=== PATIENT | male | born 1950 | race Caucasian/White ===

== ENCOUNTER → 2021-06-12 10:51 | Outpatient (BNVA) | payer OTHER, SELFPAY | PROVIDERS: Family Provider Nurse Practitioner Family; PCP Nurse Practitioner Family; Referring Provider Nurse Practitioner Family; Visit Provider Specialist | DX: R51.9 Headache, unspecified (principal); R20.0 Anesthesia of skin; R20.2 Paresthesia of skin; G31.84 Mild cognitive impairment of uncertain or unknown etiology | CPT/HCPCS: 96372; 99205; J1885 ==

== ENCOUNTER 2021-06-12 13:45 | Outpatient (CLI) | payer OTHER, SELFPAY ==
[2021-06-12 15:06] LABS: Vitamin B12 200 pg/mL (232-1245)
[2021-06-13 15:09] LABS: Lyme AB Screen <0.90 index
[2021-06-13 15:55] LABS: Erythrocyte Sedimentation Rate 2 mm/hr (0-10)
[2021-06-16 17:14] LABS: E. Chaffeensis AB IGG <1:64; E. Chaffeensis AB IGM <1:20
[2021-06-17 16:57] LABS: RMSF IGG NOT DETECTED; RMSF IGM NOT DETECTED
== END 2021-06-12 13:46 | disposition home or self-care (01) ==
PROVIDERS: PCP Nurse Practitioner Family; Visit Provider Specialist
DX: R20.0 Anesthesia of skin (principal); R20.2 Paresthesia of skin; R51.9 Headache, unspecified
CPT/HCPCS: 82607; 82746; 85651; 86140; 86618; 86666; 86757

== ENCOUNTER → 2021-06-25 08:54 | Outpatient (BNVA) | payer OTHER, SELFPAY | PROVIDERS: PCP Nurse Practitioner Family; Visit Provider Specialist | DX: E53.8 Deficiency of other specified B group vitamins (principal); G43.909 Migraine, unspecified, not intractable, without status migrainosus | CPT/HCPCS: 96372 ==

== ENCOUNTER → 2021-07-15 09:35 | Outpatient (BNVA) | payer OTHER, SELFPAY | PROVIDERS: PCP Nurse Practitioner Family; Visit Provider Specialist | DX: R51.9 Headache, unspecified (principal); E53.8 Deficiency of other specified B group vitamins; R90.82 White matter disease, unspecified | CPT/HCPCS: 99214; 99215 ==

== ENCOUNTER → 2022-08-12 14:57 | Outpatient (BNVA) | payer OTHER, SELFPAY | PROVIDERS: PCP Nurse Practitioner Family; Visit Provider Specialist | DX: R51.9 Headache, unspecified (principal) | CPT/HCPCS: 99214 ==

== ENCOUNTER → 2023-02-16 13:37 | Outpatient (BNVA) | payer OTHER, SELFPAY | PROVIDERS: PCP Nurse Practitioner Family; Visit Provider Dermatology | DX: B07.8 Other viral warts (principal); D04.4 Carcinoma in situ of skin of scalp and neck | CPT/HCPCS: 17272; 99213 ==

== ENCOUNTER 2023-05-21 07:55 | Outpatient (CLI) | payer OTHER, SELFPAY ==
--- NOTE | 2023-05-21 08:02 | USCV_ITS ---
mILD Kenn Meng Age: 73 Gender: M : 1950 Exam Date: 05/21/2023 08:37 Ordering Phys: Maddie Diaz APN Technologist: Jeff Sauceda [place] [facility] [place]: bradycardia BP: 133 / 79 HR: 42 Rhythm: Sinus Technical Quality: Adequate MEASUREMENTS (Male / Female) Normal Values 2D ECHO LVOT Diameter 2.0 cm LV Ejection Fraction MOD 2C 70.2 % LV Ejection Fraction 2C AL 70.5 % LA Diameter 3.3 cm LA Width 3.1 cm LA Height 4.3 cm RA Width 3.3 cm RA Height 4.7 cm Aorta at Sinotubular Diameter 2.6 cm IVC Diameter 1.8 cm M-MODE Aortic Annulus Diameter 3.1 cm LA Ao Ratio MM 1.2 MV E Point Septal Separation 0.5 cm DOPPLER AV Peak Velocity 121.0 cm/s LVOT Peak Velocity 108.0 cm/s AV Area Cont Eq vti 2.9 cm squared AV Area Cont Eq pk 2.9 cm squared MV Peak Velocity 97.0 cm/s MV Area PHT 4.3 cm squared Mitral E to A Ratio 1.1 MV E' Velocity 49.0 cm/s Mitral E to MV E' Ratio 9.1 Mitral E to LV E' Lateral Ratio 8.5 Mitral E to LV E' Septal Ratio 9.9 TR Peak Velocity 227.7 cm/s TR Peak Gradient 20.7 mmHg TR Mean Velocity 228.6 cm/s TR Mean Gradient 23.3 mmHg TR Velocity Time Integral 76.8 cm Right Atrial Pressure 3.0 mmHg Pulmonary Artery Systolic Pressu 23.7 mmHg PV Peak Velocity 79.3 cm/s RV Acceleration Time 0.1 s RV Ejection Time 0.3 s RV AcT/ET 0.4 FINDINGS Left Ventricle left ventricle is normal in LV systolic function is normal with EF of 55 to 60%. No regional wall motion abnormalities are seen. Right Ventricle Normal in size and function Right Atrium Normal in size Left Atrium Normal in size Mitral Valve Structurally normal mitral valve. Mild mitral regurgitation Aortic Valve Structurally normal aortic valve. Mild aortic regurgitation. No aortic stenosis. Tricuspid Valve Mild tricuspid regurgitation. Insufficient TR jet to calculate RVSP Pulmonic Valve Not well visualized Pericardium Normal Aorta Normal in size IVC Appears to be normal CONCLUSIONS LV systolic function is normal with EF of 55-60% Mild mitral regurgitation Mild aortic regurgitation Mild tricuspid regurgitation No comparison studies are available. Saad Hawthorne MD (Electronically Signed) Final Date: 25 May 2023 10:13 S
== END 2023-05-21 07:56 | disposition home or self-care (01) ==
PROVIDERS: PCP Family Medicine; Visit Provider Nurse Practitioner Family
DX: R00.1 Bradycardia, unspecified (principal); I34.0 Nonrheumatic mitral (valve) insufficiency; I35.1 Nonrheumatic aortic (valve) insufficiency; I07.1 Rheumatic tricuspid insufficiency
CPT/HCPCS: 93306

== ENCOUNTER → 2023-08-05 13:33 | Outpatient (BNVA) | payer OTHER, SELFPAY | PROVIDERS: PCP Family Medicine; Visit Provider Dermatology | DX: L57.0 Actinic keratosis (principal); L81.4 Other melanin hyperpigmentation; L57.8 Other skin changes due to chronic exposure to nonionizing radiation; Z85.828 Personal history of other malignant neoplasm of skin | CPT/HCPCS: 17000; 99213 ==

== ENCOUNTER → 2023-08-11 15:00 | Outpatient (BNVA) | payer OTHER, SELFPAY | PROVIDERS: PCP Family Medicine; Visit Provider Specialist | DX: R51.9 Headache, unspecified (principal) | CPT/HCPCS: 99213 ==

== ENCOUNTER → 2023-09-21 07:45 | Outpatient (BNVA) | payer OTHER, SELFPAY | PROVIDERS: PCP Family Medicine; Visit Provider Specialist | DX: G43.711 Chronic migraine without aura, intractable, with status migrainosus (principal) | CPT/HCPCS: 99214 ==

== ENCOUNTER → 2023-10-21 09:38 | Outpatient (BNVA) | payer OTHER, SELFPAY | PROVIDERS: PCP Family Medicine; Visit Provider Nurse Practitioner Family | DX: L57.0 Actinic keratosis (principal); B07.8 Other viral warts; L57.8 Other skin changes due to chronic exposure to nonionizing radiation; L81.4 Other melanin hyperpigmentation; L82.1 Other seborrheic keratosis; Z85.828 Personal history of other malignant neoplasm of skin | CPT/HCPCS: 17000; 17110; 99214 ==

== ENCOUNTER → 2024-09-19 09:38 | Outpatient (BNVA) | payer OTHER, SELFPAY | PROVIDERS: PCP Family Medicine; Visit Provider Nurse Practitioner Family | DX: L57.8 Other skin changes due to chronic exposure to nonionizing radiation (principal); L81.4 Other melanin hyperpigmentation; L82.1 Other seborrheic keratosis; R23.3 Spontaneous ecchymoses; Z08 Encounter for follow-up examination after completed treatment for malignant neoplasm; Z85.828 Personal history of other malignant neoplasm of skin; D48.5 Neoplasm of uncertain behavior of skin; L57.0 Actinic keratosis | CPT/HCPCS: 11102; 17000; 99213 ==

== ENCOUNTER → 2024-10-09 11:10 | Outpatient (BNVA) | payer OTHER, SELFPAY | PROVIDERS: PCP Family Medicine; Visit Provider Dermatology | DX: C44.91 Basal cell carcinoma of skin, unspecified (principal); L57.0 Actinic keratosis | CPT/HCPCS: 17000; 99213 ==

== ENCOUNTER 2025-02-09 06:50 | Emergency (ER) | payer OTHER, MEDICARE, SELFPAY ==
[2025-02-09 07:06] VITALS: BP 149/62; PULSE 48; RESP 16; TEMP 36.6; O2SAT 98; BMI 24.3
[2025-02-09 07:27] VITALS: BP 149/62
[2025-02-09 07:27] LABS: Basophils % 0.5 %; Eosinophils # 0.1 10^3/uL (0.0-0.8); Eosinophils % 1.2 %; Hematocrit 49.4 % (37-53); Lymphocytes # 2.3 10^3/uL (0.8-4.8); Lymphocytes % 40.5 %; Mean Corpuscular HGB Conc 31.8 g/dL (30-55); Mean Corpuscular Hemoglobin 31.8 pg (27-33); Mean Corpuscular Volume 100.2 fl (82-101); Mean Platelet Volume 9.6 fL (7.4-10.4); Monocytes # 0.6 10^3/uL (0.2-0.9); Neutrophils # 2.75 10^3/uL (1.8-7.7); Neutrophils % 47.6 %; Nucleated Red Blood Cells % 0 %; Platelet Count 160 10^3/cmm (157-399); Red Blood Count 4.93 10^6/uL (3.85-5.65); White Blood Count 5.78 10^3/uL (3.29-11.43)
[2025-02-09 07:42] LABS: Add Urine Microscopic? YES; Bacteria Urine None Seen /hpf; Bilirubin Urine 1+ (Negative); Blood Urine 3+ (Negative); Glucose Urine UA Negative (Normal); Hyaline Casts Urine 0-4 /lpf; Ketones Urine Negative (Negative); Leukocyte Esterase Urine 1+ (Negative); Nitrate Urine Positive (Negative); Protein Urine 3+ (Negative); RBC Urine >100 /hpf (0-2); Specific Gravity, Urine 1.017 (1.005-1.030); Squamous Epithelial Cell Urine 0-5 /hpf (0-5); Urine Appearance Turbid (CLEAR); Urine Color Red (Yellow); Urobilinogen Urine 0.2 mg/dL (Negative)
[2025-02-09 07:43] LABS: Add Urine Culture? Yes
[2025-02-09 07:47] LABS: Alanine Aminotransferase 24 U/L (0-41); Albumin Level 4.2 g/dL (3.5-5.2); Alkaline Phosphatase 104 U/L (40-130); Anion Gap 12.3 (5-19); Aspartate Amino Transferase 25 U/L (0-40); Blood Urea Nitrogen 29 mg/dL (8-23); Calcium 9.1 mg/dL (8.5-10.5); Carbon Dioxide 26 mmol/L (22-29); Chloride 105 mmol/L (98-107); Creatinine Clr Calc Pharmacy 56.1103; Globulin 2.6 g/dL (1.3-4.6); Glucose 108 mg/dL (65-115); Osmolality Calculated 294 mOsm/kg (285-295); Potassium 4.3 mmol/L (3.5-5.1); Sodium 139 mmol/L (136-145); Total Bilirubin 0.4 mg/dL (0.15-1.2); Total Protein 6.8 g/dL (6.6-8.7)
[2025-02-09] MEDS: morphine 4 mg/mL SDV 1 mL 2 MG IVP (07:47)
[2025-02-09] MEDS: ondansetron 2 mg/ML SDV 2 mL 4 MG IVP (07:47)
[2025-02-09] MEDS: ketorolac 30 mg/mL INJ 15 MG IVP (07:47)
--- NOTE | 2025-02-09 08:00 | CT_ITS ---
WS: [id number] CT ABDOMEN PELVIS TECHNIQUE: Noncontrast CT of the abdomen and pelvis with coronal and sagittal reformatted images. CLINICAL INFORMATION: flank pain, hematuria COMPARISON: None. DLP: 497.[address] scans at [facility] use at least one of these dose optimization techniques: automated exposure control; mA and/or kV adjustment per patient size (includes targeted exams where dose is matched to clinical indication); or iterative reconstruction. FINDINGS: Mild dilatation of the LEFT renal pelvis. Increased soft tissue density distal LEFT renal pelvis extending into the LEFT proximal ureter suspicious for TCC and/or blood products. Layering blood products in the bladder with nodular wall thickening along the dorsal inferior bladder. Some of this likely represents hematoma but bladder TCC not excluded. Recommend further evaluation with cystoscopy. Mild prostate enlargement. No hydronephrosis in the RIGHT kidney. Slight bibasilar atelectasis. Normal noncontrast liver and spleen. Small esophageal hiatal hernia. Normal noncontrast pancreas. Adrenal glands are normal. Aortic calcification. Normal caliber abdominal aorta. A few colonic diverticuli. CT/CT kidney stone [id number] IMPRESSION: 1. Increased soft tissue density in the renal pelvis extending into the LEFT U PJ and proximal ureter suspicious for TCC or hematoma. Mild dilatation LEFT ajzmin al pelvis. Recommend urology evaluation. 2. Increased density in the bladder some of which likely represents blood prod ucts. However, bladder wall thickening with nodularity along the dorsal inferio r bladder. Recommend direct visualization. Bladder TCC not excluded. Recommend further evaluation with cystoscopy. 3. Mild prostate enlargement measuring 4.4 cm. 4. Small esophageal hernia. 5. No other acute findings. Notified Chilo De Lo sSantos DO at 02/09/2025 9:03 AM.
--- NOTE | 2025-02-09 08:01 | W.ED.MALEGU ---
HPI - Male Genitourinary General: Chief complaint: Urogenital-Male Stated complaint: bloody urine Time Seen by Provider: 02/09/25 07:13 History of Present Illness: 75-year-old male presents emergency room with gross hematuria and left flank pain. Started have discomfort last night this morning when he woke up into the bathroom had gross hematuria. Denies dysuria urgency frequency no fever. Has known history of nephrolithiasis. Patient presented with a severe left flank pain is improved after Toradol and morphine. Patient was a history of baseline bradycardia heart rate in the low to mid 40s with adequate blood pressure this has been noted in the past he says is typical for him. He is not on any beta-blockers. He denies any chest pain or shortness of breath. Associated symptoms: Reports hematuria; Deny dysuria Related Data Home Medications ?Medication ?Instructions ?Recorded ?Confirmed rosuvastatin 20 mg tablet 10 mg PO BEDTIME 07/15/22 02/09/25 cholecalciferol (vitamin D3) 125 125 mcg PO DAILY 02/09/25 02/09/25 mcg (5,000 unit) tablet (Vitamin D3) meloxicam 7.5 mg tablet 7.5 mg PO DAILY PRN joint pain 02/09/25 02/09/25 [id number] 300 mcg-K 60 1 tab PO DAILY 02/09/25 02/09/25 mcg-lycop 600 mcg-lutein 300 mcg tablet (Men 50 Plus Multivitamin) Allergies Allergy/AdvReac Type Severity Reaction Status Date / Time Penicillins Allergy ALGY-Rash Verified 09/21/23 07:52 Review of Systems Const: Denies: fever(s) or chills Card: Denies: chest pain Resp: Denies: dyspnea GI: Denies: abdominal pain : Reports: flank pain, difficulty urinating and hematuria; Denies: dysuria, urinary frequency or urinary urgency Musc: Denies: neck pain or back pain Skin/Breast: Denies: rash PFSH ED PFSH: Medical History (Updated 02/09/25 @ 13:52 by Chilo De Los Santos DO) History of nephrolithiasis Sinus bradycardia History of nonmelanoma skin cancer Social History Smoking and tobacco/nicotine status: never used tobacco/nicotine Physical Exam Const: COMMON NORMALS: no acute distress GENERAL APPEARANCE: cooperative and comfortable ORIENTATION/CONSCIOUSNESS: Yes awake, Yes oriented to person, Yes oriented to place and Yes oriented to time HENMT: COMMON NORMALS: normocephalic, atraumatic and hearing grossly normal bilaterally HEAD & SCALP: normocephalic and atraumatic Resp: COMMON NORMALS: normal respiratory effort, No retractions, No use of accessory muscles and clear to auscultation bilaterally AUSCULTATION: clear to auscultation bilaterally Cardio: COMMON NORMALS: regular rhythm and No murmurs present (Cardio) RATE: bradycardic RHYTHM: regular rhythm GI: COMMON NORMALS: Soft to palpation and No hepatosplenomegaly present AUSCULTATION: Yes normoactive bowel sounds PALPATION: Yes Soft to palpation, No Tenderness to palpation present (GI), No Guarding due to palpation present (GI) and Yes No hepatosplenomegaly present Extremity: COMMON NORMALS: normal to inspection, capillary refill normal, no clubbing, cyanosis or edema, no calf tenderness and no pedal edema Neuro: SENSORIUM/ORIENTATION: Yes oriented to person, Yes oriented to place and Yes oriented to time Skin: COMMON NORMALS: no rashes or lesions noted GENERAL SKIN EXAM: no rashes or lesions noted Course Vital Signs: Vital signs: Vital Signs Temperature 97.9 F 02/09/25 07:06 Pulse Rate 51 L 02/09/25 13:38 Respiratory Rate 16 02/09/25 07:06 Blood Pressure 158/76 02/09/25 13:38 Pulse Oximetry 98 02/09/25 13:38 Oxygen Delivery Me thod Room Air 02/09/25 10:22 MDM - Male Medical Decision Making CT. 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 There is some hydronephrosis. Minimal white blood cells almost entirely red blood cells. No leukocytosis. Discussed with urology will transfer to [place] they will except patient likely will need stent and biopsy to confirm diagnosis. Discussed with patient's pain medications given patient stable at time of discharge Medical Records I reviewed the patient's medical records. Lab Data I reviewed the patient's lab results. 02/09/25 07:22 02/09/25 07:22 Radiology Impressions Abdomen/Pelvis CT 02/09/25 08:00 IMPRESSION: 1. Increased soft tissue density in the renal pelvis extending into the LEFT UPJ and proximal ureter suspicious for TCC or hematoma. Mild dilatation LEFT renal pelvis. Recommend urology evaluation. 2. Increased density in the bladder some of which likely represents blood products. However, bladder wall thickening with nodularity along the dorsal inferior bladder. Recommend direct visualization. Bladder TCC not excluded. Recommend further evaluation with cystoscopy. 3. Mild prostate enlargement measuring 4.4 cm. 4. Small esophageal hernia. 5. No other acute findings. Notified Chilo De Los Santos DO at 02/09/2025 9:03 AM. Laboratory Results WBC 5.78 10^3/uL (3.29-11.43) 02/09/25 07:22 RBC 4.93 10^6/uL (3.85-5.65) 02/09/25 07:22 Hgb 15.70 g/dL (11.27-16.99) 02/09/25 07:22 Hct 49.4 % (37-53) 02/09/25 07:22 MCV 100.2 fl (82-101) 02/09/25 07:22 MCH 31.8 pg (27-33) 02/09/25 07:22 MCHC 31.8 g/dL (30-55) 02/09/25 07:22 RDW 13.0 % (12.1-15.1) 02/09/25 07:22 Plt Count 160 10^3/cmm (157-399) 02/09/25 07:22 MPV 9.6 fL (7.4-10.4) 02/09/25 07:22 Neut % (Auto) 47.6 % 02/09/25 07:22 Lymph % (Auto) 40.5 % 02/09/25 07:22 [place] % (Auto) 10.0 % 02/09/25 07:22 Eos % (Auto) 1.2 % 02/09/25 07:22 Baso % (Auto) 0.5 % 02/09/25 07:22 Neut # (Auto) 2.75 10^3/uL (1.8-7.7) 02/09/25 07:22 Lymph # (Auto) 2.3 10^3/uL (0.8-4.8) 02/09/25 07:22 [place] # (Auto) 0.6 10^3/uL (0.2-0.9) 02/09/25 07:22 Eos # (Auto) 0.1 10^3/uL (0.0-0.8) 02/09/25 07:22 Baso # (Auto) 0.0 10^3/uL (0.0-0.1) 02/09/25 07:22 Nucleated RBC % (auto) 0 % 02/09/25 07:22 Nucleated RBCs # 0.0 /100WBC 02/09/25 07:22 Sodium 139 mmol/L (136-145) 02/09/25 07:22 Potassium 4.3 mmol/L (3.5-5.1) 02/09/25 07:22 Chloride 105 mmol/L (98-107) 02/09/25 07:22 Carbon Dioxide 26 mmol/L (22-29) 02/09/25 07:22 Anion Gap 12.3 (5-19) 02/09/25 07:22 BUN 29 mg/dL (8-23) H 02/09/25 07:22 Creatinine 1.2 mg/dL (0.7-1.2) 02/09/25 07:22 GFR Calculation Not Reportable 02/09/25 07:22 Glucose 108 mg/dL (65-115) 02/09/25 07:22 Calculated Osmolality 294 mOsm/kg (285-295) 02/09/25 07:22 Calcium 9.1 mg/dL (8.5-10.5) 02/09/25 07:22 Total Bilirubin 0.4 mg/dL (0.15-1.2) 02/09/25 07:22 AST 25 U/L (0-40) 02/09/25 07:22 ALT 24 U/L (0-41) 02/09/25 07:22 Alkaline Phosphatase 104 U/L (40-130) 02/09/25 07:22 Total Protein 6.8 g/dL (6.6-8.7) 02/09/25 07:22 Albumin 4.2 g/dL (3.5-5.2) 02/09/25 07:22 Globulin 2.6 g/dL (1.3-4.6) 02/09/25 07:22 Urine Color Red (Yellow) A 02/09/25 07:10 Urine Appearance Turbid (CLEAR) A 02/09/25 07:10 Urine pH 7.0 (5-7) 02/09/25 07:10 Ur Specific [place] 1.017 (1.005-1.030) 02/09/25 07:10 Urine Protein 3+ (Negative) A 02/09/25 07:10 Urine Glucose (UA) Negative (Normal) 02/09/25 07:10 Urine Ketones Negative (Negative) 02/09/25 07:10 Urine Blood 3+ (Negative) A 02/09/25 07:10 Urine Nitrate Positive (Negative) A 02/09/25 07:10 Urine Bilirubin 1+ (Negative) H 02/09/25 07:10 Urine Urobilinogen 0.2 mg/dL (Negative) 02/09/25 07:10 Ur Leukocyte Esterase 1+ (Negative) A 02/09/25 07:10 Urine RBC >100 /hpf (0-2) H 02/09/25 07:10 Urine WBC 6-10 /hpf (0-5) 02/09/25 07:10 Ur Squamous Epith Cells 0-5 /hpf (0-5) 02/09/25 07:10 Amorphous Sediment Not Reportable 02/09/25 07:10 Urine Bacteria None seen /hpf (NONE) 02/09/25 07:10 Hyaline Casts 0-4 /lpf H 02/09/25 07:10 All radiology interpretation(s) finalized by discharge Discharge Plan Discharge Patient Disposition: Transfer to ED Clinical Impression: Ureteral mass, Mass of bladder, Obstruction of left ureter Condition: Stable Prescriptions: No Action rosuvastatin 20 mg tablet 10 mg PO BEDTIME cholecalciferol (vitamin D3) [Vitamin D3] 125 mcg (5,000 unit) Tablet 125 mcg PO DAILY Men 50 Plus Multivitamin [id number] mcg Tablet 1 tab PO DAILY meloxicam 7.5 mg Tablet 7.5 mg PO DAILY PRN (Reason: joint pain ) Referrals: Lillian Montalvo APRN-BC [Family Provider, Nurse Practitioner] Hardik Solorio MD [Primary Care Provider, Family Practice] Print Language: Spanish Coding Level of Care Code ED 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
--- NOTE | 2025-02-09 08:03 | ECG_ITS ---
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 Measurements Intervals [place] Rate: 40 P: 41 MT: 170 QRS: 75 QRSD: 93 T: 68 QT: 494 QTc: 406 Interpretive Statements SINUS BRADYCARDIA MINIMAL VOLTAGE CRITERIA FOR LVH, CONSIDER NORMAL VARIANT [MEETS CRITERIA IN ONE OF: R(aVL), S(V1), R(V5), R(V5/V6)+S(V1)] Compared to ECG 08/15/2018 17:31:11 No significant changes Electronically Signed On 02-11-2025 19:30:33 CDT by Zac Dugan M.D. [email or web address]
[2025-02-09 08:22] VITALS: BP 130/68; O2SAT 98
--- NOTE | 2025-02-09 09:48 | DCPLANNER ---
Addendum entered by Lizet Kay 02/09/25 10:10: [facility] - [facility] no avail beds Original Note: Way - [place] no beds avail Amber Miller no beds long wait [place] - [place] no urology avail [place] [address] [facility] [place] urology Yaritza Mckay -no urology nhan mccarthy - [place] no beds Amber GRANT and [place] calling back [phone]
[2025-02-09] MEDS: HYDROmorphone 0.5 MG/0.5 ML INJ IVP ×3 (10:19→13:37)
[2025-02-09 10:22] VITALS: BP 152/83; O2SAT 97
[2025-02-09 13:38] VITALS: BP 158/76; PULSE 51; O2SAT 98
== END 2025-02-09 13:39 ==
PROVIDERS: Emergency Provider Family Medicine; Family Provider Nurse Practitioner Family; PCP Family Medicine
DX: N28.89 Other specified disorders of kidney and ureter (principal); N32.89 Other specified disorders of bladder; Z85.828 Personal history of other malignant neoplasm of skin
CPT/HCPCS: 36415; 51798; 74176; 80053; 81001; 85025; 87086; 93005; 96374; 96375; 96376; 99285; J1171; J1885; J2270; J2405